=== PATIENT | female | born 1950 | race Caucasian/White ===

== ENCOUNTER 2018-07-08 10:41 | Emergency (ER) | payer OTHER ==
--- OUTSIDE RECORDS SUMMARY | 2018-07-08 10:43 | XMS REPORT | Clinical Summary ---
:1950 Author Organization [facility] Address [address] [place] [address] Care Team Providers Name Role Phone Jerrod Rios MD Primary Care Provider Allergies Active Allergy Reactions Severity Noted Date Comments Penicillins 07/29/2016 Medications Medication Sig Dispensed Refills Start End Date Status Date ALPRAZolam (XANAX) TAKE 1/2 TABLET 0 Active 0.5 MG tablet BY MOUTH 3 TIMES 7 A DAY NEEDED metoprolol Take 100 mg by 1 Active succinate XL mouth once daily. 7 (TOPROL-XL) 100 mg 24 hr tablet nortriptyline Take 50 mg by 0 Active (PAMELOR) 50 MG mouth once daily. 7 capsule omeprazole TAKE ONE CAPSULE 0 Active (PriLOSEC) 40 MG BY MOUTH EVERY 7 capsule DAY 30 MINUTES BEFORE BREAKFAST perphenazine 4 MG Take 12 mg by 0 Active tablet mouth every 7 evening. verapamil extended Take 300 mg by 1 Active release (VERELAN mouth once daily. 6 PM) 300 MG capsule, [address] ER capsule zolpidem (AMBIEN) TAKE 1 TABLET BY 0 Active 10 mg tablet MOUTH EVERY NIGHT 7 NEEDED cholecalciferol, Take 2,000 Units 0 Active vitamin D3, by mouth. (VITAMIN D3) 2,000 unit tablet utmfizcf-oii-SG-Ca Take 1 tablet by 0 Active carb-vit K 400 mouth. mcg-500 mg calcium-20 mcg tablet clonIDINE Take 1 tablet 180 tablet 3 Active (CATAPRES) 0.1 MG (0.1 mg total) by 8 tabletIndications: mouth 2 (two) Essential times a day. hypertension losartan (COZAAR) Take 100 mg by 1 Active 100 MG tablet mouth daily. 8 spironolactone TAKE 1 TABLET BY 90 tablet 3 Active (ALDACTONE) 50 MG MOUTH EVERY DAY 9 tabletIndications: Essential hypertension losartan-hydrochlor Take 1 tablet by 1 04/06/20 Discontinued othiazide (HYZAAR) mouth once daily. 6 18 100-25 mg per Patient is taking tablet half tablet Per [employer] clonIDINE Take 1 tablet 180 tablet 3 12/17/19 Discontinued (CATAPRES) 0.1 MG (0.1 mg total) by 7 18 tabletIndications: mouth 2 (two) Essential times a day. hypertension valsartan (DIOVAN) Take 80 mg by 2 04/06/20 Discontinued 80 MG tablet mouth once daily. 7 18 spironolactone Take 1 tablet (50 90 tablet 3 06/21/19 Discontinued (ALDACTONE) 50 MG mg total) by 8 19 tabletIndications: mouth daily. Essential hypertension Active Problems Problem Noted Date Essential hypertension 07/30/2016 Encounters Date Type Specialty Care Team Description 06/21/2018 Refill Cardiology Goldy Beckwith MD Med Refill 04/06/2018 Office Visit Cardiology Goldy Beckwith MD Essential hypertension (Primary Dx) 12/16/2017 Orders Only Cardiology Gerardo Jay MA Essential hypertension 12/11/2017 Refill Cardiology Goldy Beckwith MD Med Refill after 07/07/2017 Social History Tobacco Use Types Packs/Day Years Used Date Never Smoker Sex Assigned at Date Recorded Not on file Job Start Date Occupation Industry Not on file Not on file Not on file Travel History Travel Start Travel End No recent travel history available. Last Filed Vital Signs Vital Sign Reading Time Taken Blood Pressure 177/87 04/06/2018 10:27 AM OB NURSE Pulse 89 04/06/2018 10:27 AM OB NURSE Temperature - - Respiratory Rate - - Oxygen Saturation - - Inhaled Oxygen Concentration - - Weight 95.3 kg (210 lb) 04/06/2018 10:27 AM OB NURSE Height - - Body Mass Index 36.05 04/06/2018 10:27 AM OB NURSE Plan of Treatment Date Type Specialty Care Team Description 10/05/2018 Office Visit Cardiology Goldy Beckwith MD [address] [address] Health Maintenance Due Date Last Done Comments BREAST CANCER SCREENING 02/20/1998 COLON CANCER SCREENING 02/20/1998 SHINGLES VACCINES (1 of 2) 02/20/1998 PNEUMOCOCCAL POLYSACCHARIDE VACCINE AGE 65 AND OVER 02/20/2013 PNEUMOCOCCAL-13 02/20/2013 INFLUENZA VACCINE 12/23/2017 Results Not on fileafter 07/07/2017 Insurance Payer Benefit Plan / Group Subscriber ID Type Phone Address AETNA MEDICARE AETNA MEDICARE HMO/PPO [facility] xxxxxxxx HMO ([place]) [place] [address] Advance Directives Patient has advance care planning documents on file. For more information, please contact:Melecio Zamarripa[address] [place] [address]
--- OUTSIDE RECORDS SUMMARY | 2018-07-08 10:44 | XMS REPORT ---
:1950 Author Organization [employer] Care Team Providers Name Role Phone Eastman Angelo Provider Role Unavailable Allergies, Adverse Reactions, Alerts Substance Reaction Event Type penicillin Info Not Available Drug Allergy Problems Problem Type Condition Code Onset Dates Condition Status Assessment Strain of muscle(s) and tendon(s) S46.011A Active of the rotator cuff of right shoulder, initial encounter Problem Pain, joint, shoulder, right M25.511 Active Problem Presence of left artificial knee Z96.652 Active joint Problem Strain of muscle(s) and tendon(s) S46.011A Active of the rotator cuff of right shoulder, initial encounter Assessment Pain, joint, shoulder, right M25.511 Active Problem Other chronic pain G89.29 Active Problem Pain in left knee M25.562 Active Medications Medication Code Code Instructions Start End Status Dosage System Date Date Spironolactone [facility] 83338536912 50 MG Oral Active TAKE 1 TABLET BY MOUTH EVERY DAY Zolpidem Tartrate [facility] 75495261960 10 MG Oral Active (Schedule IV Drug) TAKE 1 TABLET BY MOUTH EVERY NIGHT NEEDED Perphenazine [facility] 55052178468 4 MG Oral Active TAKE 3 TABLET BY MOUTH EVERY EVENING Losartan Potassium [facility] 67770320391 100 MG Oral Active TAKE 1 TABLET BY MOUTH EVERY DAY Metoprolol [facility] 84833647430 100 MG Oral Active TAKE 1 Succinate ER TABLET BY MOUTH EVERY DAY Nortriptyline HCl [facility] 71370954365 50 MG Oral Active TAKE 1 CAPSULE BY MOUTH EVERY DAY Clonidine HCl [facility] 76715246732 0.1 MG Oral Active TAKE 1 TABLET BY MOUTH TWICE A DAY Results Name Result Date Reference Range Unit Abnormality Flag X-RAY EXAM SHOULDER 2 VIEWS (01439) Summary Purpose eClinicalWorks Submission
--- OUTSIDE RECORDS SUMMARY | 2018-07-08 10:44 | XMS REPORT ---
:1950 Author Organization [employer] Care Team Providers Name Role Phone Angelo Eastman Provider Role Unavailable Allergies, Adverse Reactions, Alerts Substance Reaction Event Type penicillin Info Not Available Drug Allergy Problems Problem Type Condition Code Onset Dates Condition Status Assessment Pain in left knee M25.562 Active Assessment Other chronic pain G89.29 Active Problem Pain, joint, shoulder, right M25.511 Active Problem Presence of left artificial knee Z96.652 Active joint Problem Strain of muscle(s) and tendon(s) S46.011A Active of the rotator cuff of right shoulder, initial encounter Assessment Presence of left artificial knee Z96.652 Active joint Problem Other chronic pain G89.29 Active Problem Pain in left knee M25.562 Active Medications Medication Code Code Instructions Start End Status Dosage System Date Date Perphenazine [facility] 94578892474 4 MG Oral Active TAKE 3 TABLET BY MOUTH EVERY EVENING Zolpidem Tartrate [facility] 59405450311 10 MG Oral Active (Schedule IV Drug) TAKE 1 TABLET BY MOUTH EVERY NIGHT NEEDED Glucosamine NDC 0 Active not Chondro Complex defined Vitamin D-3 [facility] [address] Active not defined Losartan [facility] 86782247910 100 MG Oral Active TAKE 1 Potassium TABLET BY MOUTH EVERY DAY Clonidine HCl [facility] 86575076766 0.1 MG Oral Active TAKE 1 TABLET BY MOUTH TWICE A DAY Pepcid [facility] [address]-62 Active not defined Multivitamin [facility] 00782-[address]12 Active not defined Aspirin 81 [facility] [address]69-01973 Active not defined Fish Oil [facility] [address]-09 Active not defined Metoprolol [facility] 32894810359 100 MG Oral Active TAKE 1 Succinate ER TABLET BY MOUTH EVERY DAY Spironolactone [facility] 22531172118 50 MG Oral Active TAKE 1 TABLET BY MOUTH EVERY DAY Nortriptyline HCl [facility] 28555730034 50 MG Oral Active TAKE 1 CAPSULE BY MOUTH EVERY DAY Results No Known Results Summary Purpose eClinicalWorks Submission
[2018-07-08 11:25] LABS: Absolute Lymphocytes (CBC) 1.4 K/uL (0.7-4.9); Absolute Monocytes 0.8 K/uL (0.1-1.3); Absolute Neutrophil 5.1 K/uL (1.8-8.0); Basophils % 0.5 % (0-1.3); Eosinophils % 1.5 % (0-4.4); Hematocrit 38.1 % (36.0-45.0); Lymphocytes % 19.1 % (15.3-44.8); MPV 7.6 fL (7.6-11.3); Monocytes % 10.6 % (3.3-12.3); RBC Red Blood Cell Count 4.31 M/uL (3.86-4.86)
[2018-07-08 11:37] LABS: Potassium 4.3 mmol/L (3.5-5.1); Protime INR 1.03
--- NOTE | 2018-07-08 12:13 | ER ---
Nurse's Notes [facility] Name: Krissy Blanco Age: 68 yrs Sex: Female : 1950 Arrival Date: 07/08/2018 Time: 10:42 Bed 3 Private MD: Diagnosis: Epistaxis-Left nare Presentation: 07/08 10:43 Presenting complaint: Patient states: continuous nose bleed that began approximately 20 tw2 minutes ago. Steady stream of blood noted from L nare. Pt denies injury. Transition of care: patient was not received from another setting of care. Onset of symptoms was July 08, 2018. Risk Assessment: Do you want to hurt yourself or someone else? Patient reports no desire to harm self or others. Initial Sepsis Screen: Does the patient have a suspected source of infection? No. Patient's initial sepsis screen is negative. Care prior to arrival: None. 10:43 Method Of Arrival: Ambulatory tw2 10:43 Acuity: BETTY 2 tw2 11:24 Initial Sepsis Screen: Does the patient meet any 2 criteria? No. Patient's initial ph sepsis screen is negative. Does the patient have a suspected source of infection? No. Patient's initial sepsis screen is negative. Historical: - Allergies: 11:23 PENICILLINS; ph - PMHx: 11:23 Hypertension; ph - Immunization history:: Adult Immunizations unknown. - Social history:: Smoking status: Patient/guardian denies using tobacco. - Ebola Screening: : No symptoms or risks identified at this time. Screenin:23 Abuse screen: Denies threats or abuse. Denies injuries from another. Nutritional ph screening: No deficits noted. Tuberculosis screening: No symptoms or risk factors identified. Fall Risk None identified. Assessment: 10:50 General: Appears in no apparent distress. comfortable, Behavior is calm, cooperative, ph appropriate for age, Denies fever, feeling ill. Pain: Denies pain. Neuro: Level of Consciousness is awake, alert, obeys commands, Oriented to person, place, time, situation. Cardiovascular: Capillary refill < 3 seconds in bilateral fingers Patient's skin is warm and dry. Respiratory: Airway is patent Respiratory effort is even, unlabored, Respiratory pattern is regular, symmetrical. GI: Patient currently denies nausea, vomiting. EENT: Nares with bleeding noted on left. Derm: Skin is intact, is healthy with good turgor, Skin is pink, warm \T\ dry. Musculoskeletal: Circulation, motion, and sensation intact. Range of motion: intact in all extremities. 11:00 Reassessment: Patient appears in no apparent distress at this time. Patient and/or ph family updated on plan of care and expected duration. Pain level reassessed. Patient is alert, oriented x 3, equal unlabored respirations, skin warm/dry/pink. Dr Guy at bedside to speak w/ pt, bleeding from nares noted to haver ceased w/ no intervention, pt resting quietly, awaiting lab results, family at bedside. 12:45 Reassessment: Patient appears in no apparent distress at this time. Patient and/or ph family updated on plan of care and expected duration. Pain level reassessed. Patient is alert, oriented x 3, equal unlabored respirations, skin warm/dry/pink. No further bleeding noted, pt d/c home w/ SO. Vital Signs: 10:43 BP 131 / 103; Pulse 118; Resp 20; Pulse Ox 98% on R/A; Pain 0/10; tw2 11:28 BP 118 / 63; Pulse 97; Resp 18; Pulse Ox 99% on R/A; Pain 0/10; ph 12:30 BP 121 / 64; Pulse 81; Resp 18; Temp 97.2; Pulse Ox 99% on R/A; ph 10:43 pt is moving arms while obtaining BP to hold gauze to her nose tw2 ED Course: 10:42 Patient arrived in ED. tw2 10:43 Arm band placed on right wrist. tw2 10:44 Triage completed. tw2 10:52 Kyle Guy MD is Attending Physician. kdr 11:09 Initial lab(s) drawn, by ak, sent to lab. Inserted saline lock: 20 gauge in right dh3 antecubital area, using aseptic technique. Blood collected. 11:24 Patient has correct armband on for positive identification. Bed in low position. Call ph light in reach. Pulse ox on. NIBP on. Warm blanket given. 11:28 Madiha Canseco, SHAYAN is Primary Nurse. ph 12:11 Asuncion Cisneros MD is Referral Physician. kdr 12:48 No provider procedures requiring assistance completed. IV discontinued, intact, sg bleeding controlled, No redness/swelling at site. Pressure dressing applied. Administered Medications: No medications were administered Outcome: 12:12 Discharge ordered by . kdr 12:48 Discharged to home ambulatory, with family. sg 12:48 Condition: good 12:48 Discharge instructions given to patient, Instructed on discharge instructions, follow up and referral plans. safety practices, Demonstrated understanding of instructions, follow-up care. 12:48 Patient left the ED. sg Signatures: Jeremías Braxton RN RN Kyle Barreto MD MD [facility] Madiha Canseco RN RN Michelle Hu RN RN 2 Jennifer Cisneros 3 Corrections: (The following items were deleted from the chart) 10:44 10:43 BP 131 / 103; Pulse 118bpm; Resp 20bpm; Pulse Ox 98% RA; Pain 0/10; tw2 tw2
--- NOTE | 2018-07-08 12:13 | EDPHYS ---
Physician Documentation [facility] Name: Krissy Blanco Age: 68 yrs Sex: Female : 1950 Arrival Date: 07/08/2018 Time: 10:42 Bed 3 Private MD: ED Physician Kyle Guy HPI: 07/08 11:17 This 68 yrs old Female presents to ER via Ambulatory with complaints of Nose kdr Bleed. 11:17 The patient presents with a nose bleed, that is apparently anterior, from the left kdr nare, occurred from an unknown cause, that is intermittent moderate amount bright red, with clots, causative factors include: unknown, Has intermittent bleeding on initial exam in the ED.. Onset: The symptoms/episode began/occurred suddenly, just prior to arrival, When she bent down to seed cone picker something, her nose began to bleed. Modifying factors: The symptoms are alleviated by nothing. the symptoms are aggravated by blowing nose. Associated signs and symptoms: The patient has no apparent associated signs or symptoms, Loss of consciousness: the patient experienced no loss of consciousness. Severity of symptoms: At their worst the symptoms were mild in the emergency department the symptoms have improved moderately. The patient has not experienced similar symptoms in the past. The patient has not recently seen a physician. Historical: - Allergies: 11:23 PENICILLINS; ph - PMHx: 11:23 Hypertension; ph - Immunization history:: Adult Immunizations unknown. - Social history:: Smoking status: Patient/guardian denies using tobacco. - Ebola Screening: : No symptoms or risks identified at this time. ROS: 11:17 Constitutional: Negative for fever, chills, and weight loss, Eyes: Negative for injury, kdr pain, redness, and discharge, Neck: Negative for injury, pain, and swelling. 11:17 ENT: Positive for nasal discharge, nose bleed, sore throat, Negative for drainage from ear(s), ear pain, foreign body sensation, Gum pain hearing loss, pulling at ears, Teeth pain tinnitus, rhinorrhea, sinus congestion, sinus pain, sore throat, dental pain, difficulty swallowing, difficulty handling secretions, hoarseness, acute changes. Exam: 11:17 Constitutional: This is a well developed, well nourished patient who is awake, alert, kdr and in no acute distress. Head/Face: Normocephalic, atraumatic. Eyes: Pupils equal round and reactive to light, extra-ocular motions intact. Lids and lashes normal. Conjunctiva and sclera are non-icteric and not injected. Cornea within normal limits. Periorbital areas with no swelling, redness, or edema. Neck: Trachea midline, no thyromegaly or masses palpated, and no cervical lymphadenopathy. Supple, full range of motion without nuchal rigidity, or vertebral point tenderness. No Meningismus. 11:17 ENT: Nose: External nose: no obvious acute abnormality, Nasal septum: is midline, Nasal mucosa: erythematous, moist, Turbinates: are normal, bleeding, is not appreciated, is seen from the left nare, and is minimal, nasal drainage, that is minimal, and expressed from the left nare, that is brown, a foreign body, is not appreciated, laceration, is not appreciated, cerebral spinal fluid rhinorrhea, is not appreciated. Vital Signs: 10:43 BP 131 / 103; Pulse 118; Resp 20; Pulse Ox 98% on R/A; Pain 0/10; tw2 11:28 BP 118 / 63; Pulse 97; Resp 18; Pulse Ox 99% on R/A; Pain 0/10; ph 12:30 BP 121 / 64; Pulse 81; Resp 18; Temp 97.2; Pulse Ox 99% on R/A; ph 10:43 pt is moving arms while obtaining BP to hold gauze to her nose tw2 MDM: 11:17 Data reviewed: vital signs, nurses notes, lab test result(s). kdr 12:12 Patient medically screened. kdr 07/08 10:53 Order name: CBC with Diff; Complete Time: 12:11 kdr 07/08 10:53 Order name: Chem 7; Complete Time: 12:11 kdr 07/08 10:53 Order name: PT-INR; Complete Time: 12:11 kdr Administered Medications: No medications were administered Disposition: 07/08/18 12:12 Discharged to Home. Impression: Epistaxis - Left nare. - Condition is Stable. - Discharge Instructions: Nosebleed, [id number]. - Medication Reconciliation Form, Thank You Letter form. - Follow up: Private Physician; When: 2 - 3 days; Reason: If symptoms return, Further diagnostic work-up, Recheck today's complaints, Continuance of care, Re-evaluation by your physician. Follow up: Asuncion Cisneros MD; When: 1 - 2 days; Reason: If symptoms return, Further diagnostic work-up, Recheck today's complaints, Continuance of care, Re-evaluation by your physician. - Problem is new. - Symptoms have improved. Signatures: Dispatcher [employer] EDJeremías Quintana RN RN sg Kyle Guy MD MD [facility] Madiha Canseco RN RN ph Corrections: (The following items were deleted from the chart) 12:48 12:12 07/08/2018 12:12 Discharged to Home. Impression: Epistaxis - Left nare. Condition sg is Stable. Forms are Medication Reconciliation Form, Thank You Letter, Antibiotic Education, Prescription Opioid Use. Follow up: Private Physician; When: 2 - 3 days; Reason: If symptoms return, Further diagnostic work-up, Recheck today's complaints, Continuance of care, Re-evaluation by your physician. Follow up: Asuncion Cisneros; When: 1 - 2 days; Reason: If symptoms return, Further diagnostic work-up, Recheck today's complaints, Continuance of care, Re-evaluation by your physician. Problem is new. Symptoms have improved. kdr
[2018-07-08 12:56] VITALS: BP 118/63; O2SAT 99
== END 2018-07-08 12:48 | disposition home or self-care (01) ==
LOC: ER 10:41
DX: R04.0 Epistaxis (principal); I10 Essential (primary) hypertension; Z88.0 Allergy status to penicillin
CPT/HCPCS: 36415; 80048; 85025; 85610; 99283

== ENCOUNTER 2018-07-08 16:58 | Emergency (ER) | payer OTHER ==
--- OUTSIDE RECORDS SUMMARY | 2018-07-08 17:00 | XMS REPORT | Clinical Summary ---
:1950 Author Organization [facility] Address [address] [place] [address] Care Team Providers Name Role Phone Jerrod [...] by mouth. (VITAMIN D3) 2,000 unit tablet swaxixbi-yco-UW-Ca Take 1 tablet by 0 Active carb-vit [...] Patient is taking tablet half tablet Per Professor [employer] clonIDINE Take 1 tablet 180 tablet 3 [...] Taken Blood Pressure 177/87 04/06/2018 10:27 AM STOCK ANALYST Pulse 89 04/06/2018 10:27 AM STOCK ANALYST Temperature - - Respiratory Rate - - Oxygen Saturation - - Inhaled Oxygen Concentration - - Weight 95.3 kg (210 lb) 04/06/2018 10:27 AM STOCK ANALYST Height - - Body Mass Index 36.05 04/06/2018 10:27 AM STOCK ANALYST Plan of Treatment Date Type Specialty Care Team Description 10/05/2018 Office Visit Cardiology Goldy Beckwith MD [address] [address] Health Maintenance Due Date Last Done Comments BREAST CANCER SCREENING 02/20/1998 COLON CANCER SCREENING 02/20/1998 SHINGLES VACCINES (1 of 2) 02/20/1998 PNEUMOCOCCAL POLYSACCHARIDE VACCINE AGE 65 AND OVER 02/20/2013 PNEUMOCOCCAL-13 02/20/2013 INFLUENZA VACCINE 12/23/2017 Results Not on fileafter 07/07/2017 Insurance Payer Benefit Plan / Group Subscriber ID Type Phone Address AETNA MEDICARE AETNA MEDICARE HMO/PPO [facility] xxxxxxxx HMO ([place]) [place] [address] Advance Directives Patient has advance care planning documents on file. For more information, please contact:Melecio Zamarripa[address] [place] [address]
--- OUTSIDE RECORDS SUMMARY | 2018-07-08 17:01 | XMS REPORT ---
[...] End Status Dosage System Date Date Perphenazine [facility] 57704506956 4 MG Oral Active TAKE 3 TABLET BY MOUTH EVERY EVENING Zolpidem Tartrate [facility] 51626100352 10 MG Oral Active (Schedule IV Drug) TAKE 1 TABLET BY MOUTH EVERY NIGHT NEEDED Glucosamine NDC 0 Active not Chondro Complex defined Vitamin D-3 [facility] [address] Active not defined Losartan [facility] 42421650928 100 MG Oral Active TAKE 1 Potassium TABLET BY MOUTH EVERY DAY Clonidine HCl [facility] 99500580503 0.1 MG Oral Active TAKE 1 TABLET BY MOUTH TWICE A DAY Pepcid [facility] [address]-99 Active not defined Multivitamin [facility] 84524-95130 Active not defined Aspirin 81 [facility] 50985-08821 Active not defined Fish Oil [facility] [address]-14 Active not defined Metoprolol [facility] 34564774474 100 MG Oral Active TAKE 1 Succinate ER TABLET BY MOUTH EVERY DAY Spironolactone [facility] 81426208914 50 MG Oral Active TAKE 1 TABLET BY MOUTH EVERY DAY Nortriptyline HCl [facility] 65521269110 50 MG Oral Active TAKE 1 CAPSULE BY MOUTH EVERY DAY Results No Known Results Summary Purpose eClinicalWorks Submission
--- OUTSIDE RECORDS SUMMARY | 2018-07-08 17:01 | XMS REPORT ---
[...] End Status Dosage System Date Date Spironolactone [facility] 35798542035 50 MG Oral Active TAKE 1 TABLET BY MOUTH EVERY DAY Zolpidem Tartrate [facility] 94881118835 10 MG Oral Active (Schedule IV Drug) TAKE 1 TABLET BY MOUTH EVERY NIGHT NEEDED Perphenazine [facility] 07787633011 4 MG Oral Active TAKE 3 TABLET BY MOUTH EVERY EVENING Losartan Potassium [facility] 86994093209 100 MG Oral Active TAKE 1 TABLET BY MOUTH EVERY DAY Metoprolol [facility] 57956782588 100 MG Oral Active TAKE 1 Succinate ER TABLET BY MOUTH EVERY DAY Nortriptyline HCl [facility] 03083351494 50 MG Oral Active TAKE 1 CAPSULE BY MOUTH EVERY DAY Clonidine HCl [facility] 07506475582 0.1 MG Oral Active TAKE 1 TABLET BY MOUTH TWICE A DAY Results Name Result Date Reference Range Unit Abnormality Flag X-RAY EXAM SHOULDER 2 VIEWS ([id number]) Summary Purpose eClinicalWorks Submission
[2018-07-08] MEDS ORDERED: OXYMETAZOLINE HCL 0.05% 15ML NAS ONE (17:19)
--- NOTE | 2018-07-08 18:02 | ER ---
Nurse's Notes [facility] Name: Krissy Blanco Age: 68 yrs Sex: Female : 1950 Arrival Date: 07/08/2018 Time: 16:59 Bed 25 Private MD: Unknown, Unknown Diagnosis: Epistaxis-Bilateral Presentation: 07/08 17:00 Presenting complaint: Patient states: i ate a cheeseburger and took the nose clamp off tw2 for a bit and my nose started bleeding all over again like this morning. Transition of care: patient was not received from another setting of care. Onset of symptoms was July 08, 2018. Risk Assessment: Do you want to hurt yourself or someone else?. Initial Sepsis Screen: Does the patient meet any 2 criteria? No. Patient's initial sepsis screen is negative. Does the patient have a suspected source of infection? No. Patient's initial sepsis screen is negative. Care prior to arrival: None. 17:00 Method Of Arrival: Wheelchair tw2 17:00 Acuity: BETTY 3 tw2 Triage Assessment: 17:02 General: Appears in no apparent distress. Behavior is appropriate for age. Pain: Denies tw2 pain. Historical: - Allergies: 17:02 PENICILLINS; tw2 - PMHx: 17:02 Hypertension; tw2 - Immunization history:: Adult Immunizations. - Social history:: Smoking status: . - Ebola Screening: : Patient negative for fever greater than or equal to 101.5 degrees Fahrenheit, and additional compatible Ebola Virus Disease symptoms. Screenin:00 Abuse screen: Denies threats or abuse. Denies injuries from another. Nutritional ca1 screening: No deficits noted. Tuberculosis screening: No symptoms or risk factors identified. Fall Risk None identified. Assessment: 17:00 General: Appears in no apparent distress. uncomfortable, Behavior is calm, cooperative, ca1 appropriate for age. Pain: Denies pain. Neuro: Level of Consciousness is awake, alert, obeys commands, Oriented to person, place, time, situation. Cardiovascular: Heart tones S1 S2 present Capillary refill < 3 seconds Patient's skin is warm and dry. Respiratory: Airway is patent Respiratory effort is even, unlabored, Respiratory pattern is regular, symmetrical, Breath sounds are clear bilaterally. GI: Abdomen is round non-distended, Bowel sounds present X 4 quads. Abd is soft and non tender X 4 quads. : No signs and/or symptoms were reported regarding the genitourinary system. EENT: Nares with nose clamps. . Reports nasal discharge that is bloody. Derm: Skin is intact, is healthy with good turgor, Skin is pink, warm \T\ dry. Musculoskeletal: Circulation, motion, and sensation intact. 17:10 Reassessment: Dr. Guy at bedside performing nasal packing on pt. Noted blood clots ca1 from nose when clamp is removed. Pt able to blow clots from nose. Pt tolerated nasal packing procedure well. 18:00 Reassessment: No changes from previously documented assessment. Patient and/or family ca1 updated on plan of care and expected duration. Pain level reassessed. Patient is alert, oriented x 3, equal unlabored respirations, skin warm/dry/pink. No bleeding noted. Pt reports feeling better. 18:40 Reassessment: Patient appears in no apparent distress at this time. Pt instructed on ca1 appointment with ENT on Thursday at 0800. Vital Signs: 17:00 BP 147 / 115; Pulse 89; Resp 18; Temp 98(O); Pulse Ox 100% on R/A; Pain 0/10; ca1 18:00 BP 100 / 83; Pulse 88; Resp 18; Pulse Ox 100% on R/A; ca1 ED Course: 16:59 Patient arrived in ED. sb2 16:59 Unknown, Unknown is Private Physician. sb2 17:01 Triage completed. tw2 17:02 Kyle Guy MD is Attending Physician. kdr 17:02 Arm band placed on. tw2 17:03 Denise Mg, SHAYAN is Primary Nurse. ca1 17:05 Patient has correct armband on for positive identification. Placed in gown. Bed in low ca1 position. Call light in reach. Side rails up X 1. 17:05 Pulse ox on. NIBP on. ca1 18:00 Asuncion Cisneros MD is Referral Physician. kdr 18:40 No provider procedures requiring assistance completed. Patient did not have IV access ca1 during this emergency room visit. Administered Medications: No medications were administered Outcome: 18:01 Discharge ordered by . kdr 18:40 Discharged to home ambulatory. ca1 18:40 Condition: stable 18:40 Discharge instructions given to patient, Instructed on discharge instructions, follow up and referral plans. Demonstrated understanding of instructions, follow-up care. 18:50 Patient left the ED. ca1 Signatures: Kyle Guy MD MD kdr Mcihelle Hu RN RN tw2 Mary Alice Ivy 2 Denise Mg RN RN ca1 Corrections: (The following items were deleted from the chart) 17:36 17:10 Reassessment: Dr. Guy at bedside performing nasal packing on pt. ca1 ca1
--- NOTE | 2018-07-08 18:02 | EDPHYS ---
Physician Documentation [facility] Name: Krissy Blanco Age: 68 yrs Sex: Female : 1950 Arrival Date: 07/08/2018 Time: 16:59 Bed 25 Private MD: Unknown, Unknown ED Physician Kyle Guy HPI: 07/08 17:53 This 68 yrs old Female presents to ER via Wheelchair with complaints of Nose kdr Bleed. 17:53 The patient presents with a nose bleed, that is apparently anterior, from both nares, kdr occurred from an unknown cause, Bent over and then started to have nose bleed - mostly from the left nare nasal drainage, that is bloody. Onset: The symptoms/episode began/occurred The patient had her initial bleed this morning and came to the ED. The bleeding was stopped and she was discharged in stable condition with a nasal clamp. She states that on the way home, she stopped to get a hamburger and that when she started to chew, her nose began to bleed again. She put the clamp on and attempted to stope the bleeding however, it continued and she returned.. Modifying factors: The symptoms are alleviated by nothing. the symptoms are aggravated by blowing nose. Associated signs and symptoms: The patient has no apparent associated signs or symptoms. Severity of symptoms: At their worst the symptoms were mild in the emergency department the symptoms are unchanged. The patient has not experienced similar symptoms in the past. The patient has been recently seen at the [facility] Emergency Department, today. Historical: - Allergies: 17:02 PENICILLINS; tw2 - PMHx: 17:02 Hypertension; tw2 - Immunization history:: Adult Immunizations. - Social history:: Smoking status: . - Ebola Screening: : Patient negative for fever greater than or equal to 101.5 degrees Fahrenheit, and additional compatible Ebola Virus Disease symptoms. ROS: 17:53 Constitutional: Negative for fever, chills, and weight loss, Eyes: Negative for injury, kdr pain, redness, and discharge, Neck: Negative for injury, pain, and swelling, Cardiovascular: Negative for chest pain, palpitations, and edema. 17:53 ENT: Positive for nose bleed. Exam: 17:53 Constitutional: This is a well developed, well nourished patient who is awake, alert, kdr and in no acute distress. Head/Face: Normocephalic, atraumatic. Eyes: Pupils equal round and reactive to light, extra-ocular motions intact. Lids and lashes normal. Conjunctiva and sclera are non-icteric and not injected. Cornea within normal limits. Periorbital areas with no swelling, redness, or edema. Neck: Trachea midline, no thyromegaly or masses palpated, and no cervical lymphadenopathy. Supple, full range of motion without nuchal rigidity, or vertebral point tenderness. No Meningismus. 17:53 ENT: Nose: External nose: no obvious acute abnormality, Nasal septum: is midline, no septal hematoma appreciated, Nasal mucosa: edematous, moist, No apparent blood, Turbinates: are swollen bilaterally, bleeding, is noted from both nares, and is minimal, no septal hematoma is appreciated, that is small. Vital Signs: 17:00 BP 147 / 115; Pulse 89; Resp 18; Temp 98(O); Pulse Ox 100% on R/A; Pain 0/10; ca1 18:00 BP 100 / 83; Pulse 88; Resp 18; Pulse Ox 100% on R/A; ca1 Procedures: 17:53 Epistaxis treatment: A moderate amount of bleeding noted from both nares. Treated using kdr rhino rocket, Bleeding stopped. Inserted in both nares. MDM: 17:53 Data reviewed: vital signs, nurses notes. Counseling: I had a detailed discussion with kdr the patient and/or guardian regarding: the historical points, exam findings, and any diagnostic results supporting the discharge/admit diagnosis, the need for outpatient follow up. Physician consultation: Asuncion Cisneros MD regarding patient's condition, outpatient follow-up, Thursday at 08:00. 18:01 Patient medically screened. kdr 18:07 ED course: The patient tolerated the procedure well. kdr Administered Medications: No medications were administered Disposition: 07/08/18 18:01 Discharged to Home. Impression: Epistaxis - Bilateral. - Condition is Stable. - Discharge Instructions: Nosebleed, [id number]. - Medication Reconciliation Form, Thank You Letter, Antibiotic Education, Prescription Opioid Use form. - Follow up: Asuncion Cisneros MD; When: Thursday at 08:00 in her office; Reason: If symptoms return, Further diagnostic work-up, Recheck today's complaints, Continuance of care, Re-evaluation by your physician. - Problem is new. - Symptoms have improved. Signatures: Kyle Guy MD MD kdr Michelle Hu RN RN tw2 Denise Mg RN RN ca1 Corrections: (The following items were deleted from the chart) 18:01 18:01 07/08/2018 18:01 Discharged to Home. Impression: Epistaxis - Bilateral. Condition kdr is Fair. Forms are Medication Reconciliation Form, Thank You Letter, Antibiotic Education, Prescription Opioid Use. Follow up: Asuncion Cisneros; When: Thursday at 08:00 in her office; Reason: If symptoms return, Further diagnostic work-up, Recheck today's complaints, Continuance of care, Re-evaluation by your physician. kdr 18:50 18:01 07/08/2018 18:01 Discharged to Home. Impression: Epistaxis - Bilateral. Condition ca1 is Stable. Forms are Medication Reconciliation Form, Thank You Letter, Antibiotic Education, Prescription Opioid Use. Follow up: Asuncion Cisneros; When: Thursday at 08:00 in her office; Reason: If symptoms return, Further diagnostic work-up, Recheck today's complaints, Continuance of care, Re-evaluation by your physician. Problem is new. Symptoms have improved. kdr
[2018-07-08 21:13] VITALS: TEMP 98; O2SAT 100
[2018-07-08 21:15] VITALS: BP 100/83
== END 2018-07-08 18:50 | disposition home or self-care (01) ==
LOC: ER 16:58
PROC: 2Y41X5Z Packing of Nasal Region using Packing Material (ICD-10-PCS; principal; 2018-07-08)
DX: R04.0 Epistaxis (principal); I10 Essential (primary) hypertension; Z88.0 Allergy status to penicillin
CPT/HCPCS: 30901; 99283

== ENCOUNTER 2019-07-20 12:14 | Emergency (ER) | payer OTHER ==
--- OUTSIDE RECORDS SUMMARY | 2019-07-20 12:16 | XMS REPORT ---
[...] End Status Dosage System Date Date Spironolactone [facility] 11441916578 50 MG Oral Active TAKE 1 TABLET BY MOUTH EVERY DAY Zolpidem Tartrate [facility] 81424837349 10 MG Oral Active (Schedule IV Drug) TAKE 1 TABLET BY MOUTH EVERY NIGHT NEEDED Perphenazine [facility] 99507121063 4 MG Oral Active TAKE 3 TABLET BY MOUTH EVERY EVENING Losartan Potassium [facility] 52998139539 100 MG Oral Active TAKE 1 TABLET BY MOUTH EVERY DAY Metoprolol [facility] 66054508730 100 MG Oral Active TAKE 1 Succinate ER TABLET BY MOUTH EVERY DAY Nortriptyline HCl [facility] 40039464485 50 MG Oral Active TAKE 1 CAPSULE BY MOUTH EVERY DAY Clonidine HCl [facility] 49254742289 0.1 MG Oral Active TAKE 1 TABLET BY MOUTH TWICE A DAY Results Name Result Date Reference Range Unit Abnormality Flag X-RAY EXAM SHOULDER 2 VIEWS (52088) Summary Purpose eClinicalWorks Submission
--- OUTSIDE RECORDS SUMMARY | 2019-07-20 12:16 | XMS REPORT ---
:1950 [facility] Address [address] [place] [address] Care Team Providers Name Role Phone Unavailable Unavailable Unavailable Payers Payer Name Policy Type Policy Number Effective Date Expiration Date Problems This patient has no known problems. Allergies, Adverse Reactions, Alerts Allergy Name Allergy Status Severity Reaction(s) Onset Inactive Treating Comments Type Date Date Clinician Penicillins DA Active MO 2019-05 00:00:0 0 Penicillins DA Active MO 2012-12 00:00:0 0 Medications This patient has no known medications. Results Test Description Test Time Test Comments Text Results Atomic Results Result Comments GLUBED 2019-07-06 10:54:00 Test Item Value Reference Range Comments GLUBED (test code=GLUBED) 103 mg/dL 60-125 BASIC METABOLIC [id number] 06:44:00 Test Item Value Reference Range Comments SODIUM (test code=NA) 138 mmol/L 136-145 POTASSIUM (test code=K) 4.8 mmol/L 3.5-5.1 CHLORIDE (test code=CL) 103.0 mmol/L 98-107 CARBON DIOXIDE (test 24.6 mmol/L 21-32 code=CO2) GLUCOSE (test code=GLU) 188 mg/dL 70-110 BLOOD UREA NITROGEN (test 31 mg/dL 7-18 code=BUN) GLOMERULAR FILTRATION RATE 40.7 >60 Unit of measure: (test code=GFR) mL/min/1.73 [id number] Range:Healthy Adults >90 mL/min/1.73 m2 For Chronic Kidney Disease: Stage II Mild Decrease in GFR 60-90 Stage III Moderate Decrease in GFR 30-59 Stage IV Severe Decrease in GFR 15-29 Stage V Kidney Failure <15 CREATININE (test code=CREAT) 1.29 mg/dL 0.55-1.30 CALCIUM (test code=CA) 7.9 mg/dL 8.2-10.1 HGB [id number] 05:56:00 Test Item Value Reference Range Comments HEMOGLOBIN (test code=HGB) 10.6 g/dL 12-16 HEMATOCRIT (test code=HCT) 31.8 % 37-47 [id number] 05:12:00 Test Item Value Reference Range Comments GLUBED (test code=GLUBED) 140 mg/dL 60-125 [id number] 00:24:00 Test Item Value Reference Range Comments GLUBED (test code=GLUBED) 204 mg/dL 60-125 [id number] 16:56:00 Test Item Value Reference Range Comments GLUBED (test code=GLUBED) 224 mg/dL 60-125 - XR KNEE 1 OR 2 V [id number] 16:15:00 Patient Name: DEANNE JERRY Unit No: [id number] EXAMS: CPT CODE: [id number] XR KNEE 1 OR 2 [place] [id number] IMAGES PROVIDED: 2 FINDINGS: Postoperative changes from righttotal knee arthoplasty demonstrated without evidence of immediate complication. No acute fracture is visualized. IMPRESSION : Postoperative exam as above. at 1615 * * Reported and signed by: Parmjit Blue M.D. CC: Westley Sood MD Technologist: JOSE FARRELL (RT.R) Transcribed D/ (1615) [facility] DEANNE [facility] [address] [facility] PHYS: Westley England MD : 1950 AGE: 69 SEX: F [place], [place] [address] LOC: Y.308 A PHONE #: [phone] EXAM DATE: 07/05/2019 STATUS: REG [facility] FAX #: [phone] RAD #: D/C DT PAGE 1 Signed Report Patient Name: DEANNE JERRY Unit No: [id number] EXAMS: CPT CODE: [id number] XR KNEE 1 OR 2 V RT [id number] <Continued> Orig Print D/T: S: 07/05/2019 (1618) [facility] NAME: DEANNE JERRY [address] [facility] PHYS: Westley England MD : 1950 AGE: 69 SEX: F [place], [place] [address] LOC: Y.308 A PHONE #: [phone] EXAM DATE: 07/05/2019 STATUS: REG [facility] FAX #: [phone] RAD #: D/C DT PAGE 2 Signed ReportCOMPREHENSIVE METABOLIC [id number] 14:58:00 Test Item Value Reference Range Comments SODIUM (test code=NA) 140 mmol/L 136-145 POTASSIUM (test code=K) 4.7 mmol/L 3.5-5.1 CHLORIDE (test code=CL) 102.0 mmol/L 98-107 CARBON DIOXIDE (test code=CO2) 26.6 mmol/L 21-32 GLUCOSE (test code=GLU) 89 mg/dL 70-110 BLOOD UREA NITROGEN (test 21 mg/dL 7-18 code=BUN) GLOMERULAR FILTRATION RATE 61.7 >60 Unit of measure: (test code=GFR) mL/min/1.73 [id number] Range:Healthy Adults >90 mL/min/1.73 m2 For Chronic Kidney Disease: Stage II Mild Decrease in GFR 60-90 Stage III Moderate Decrease in GFR 30-59 Stage IV Severe Decrease in GFR 15-29 Stage V Kidney Failure <15 CREATININE (test code=CREAT) 0.90 mg/dL 0.55-1.30 TOTAL PROTEIN (test code=PROT) 7.0 g/dL 6.4-8.2 ALBUMIN (test code=ALB) 3.6 g/dL 3.4-5.0 GLOBULIN (test code=GLOB) 3.4 g/dL 2.2-4.2 ALBUMIN/GLOBULIN RATIO (test 1.1 0.7-2.0 code=A/G) CALCIUM (test code=CA) 9.5 mg/dL 8.2-10.1 BILIRUBIN TOTAL (test 0.29 mg/dL 0.2-1.00 code=BILT) SGOT/AST (test code=AST) 19.0 U/L 15-37 SGPT/ALT (test code=ALT) 31.0 U/L 12-78 Please note new normal range. ALKALINE PHOSPHATASE TOTAL 80 U/L 46-116 (test code=ALKP) CBC W/AUTO [id number] 14:27:00 Test Item Value Reference Range Comments WHITE BLOOD CELL (test code=WBC) 7.6 K/mm3 5.8-11.0 RED BLOOD CELL (test code=RBC) 4.36 M/mm3 4.2-5.4 HEMOGLOBIN (test code=HGB) 12.7 g/dL 12-16 HEMATOCRIT (test code=HCT) 38.2 % 37-47 MEAN CELL VOLUME (test code=MCV) 88 fL 80-98 MEAN CELL HGB (test code=MCH) 29.1 pg 27-34 MEAN CELL HGB CONCENTRATION (test code=MCHC) 33.2 g/dL 30.8-34.1 RED CELL DISTRIBUTION WIDTH (test code=RDW) 13.1 % 11-16 PLT (test code=PLT) 396 K/mm3 130-400 MEAN PLATELET VOLUME (test code=MPV) 9.5 fL 8.9-12.1 NEUTROPHIL % (test code=NT%) 61.2 % 45-70 LYMPHOCYTE % (test code=LY%) 24.4 % 20-40 MONOCYTE % (test code=MO%) 11.9 % 3-10 EOSINOPHIL % (test code=EO%) 1.5 % 1-5 BASOPHIL % (test code=BA%) 0.5 % 0.0-1.1 NEUTROPHIL # (test code=NT#) 4.64 K/mm3 2.00-7.50 LYMPHOCYTE # (test code=LY#) 1.85 K/mm3 1.50-4.00 MONOCYTE # (test code=MO#) 0.90 K/mm3 0.2-0.8 EOSINOPHIL # (test code=EO#) 0.11 K/mm3 0.04-0.4 BASOPHIL # (test code=BA#) 0.04 K/mm3 0.02-0.10 MANUAL DIFF REQUIRED (test code=MDIFF) NO MANUAL DIFF NUCLEATED RED BLOOD CELL (test code=NRBC) 0 % 0-0
--- OUTSIDE RECORDS SUMMARY | 2019-07-20 12:16 | XMS REPORT ---
[...] End Status Dosage System Date Date Perphenazine [facility] 65810337098 4 MG Oral Active TAKE 3 TABLET BY MOUTH EVERY EVENING Zolpidem Tartrate [facility] 31563731350 10 MG Oral Active (Schedule IV Drug) TAKE 1 TABLET BY MOUTH EVERY NIGHT NEEDED Glucosamine NDC 0 Active not Chondro Complex defined Vitamin D-3 [facility] [address]28 Active not defined Losartan [facility] 76374042189 100 MG Oral Active TAKE 1 Potassium TABLET BY MOUTH EVERY DAY Clonidine HCl [facility] 35561059601 0.1 MG Oral Active TAKE 1 TABLET BY MOUTH TWICE A DAY Pepcid [facility] [address]-93 Active not defined Multivitamin [facility] 32538-84448 Active not defined Aspirin 81 [facility] [address]04 Active not defined Fish Oil [facility] [address]-55 Active not defined Metoprolol [facility] 95277617414 100 MG Oral Active TAKE 1 Succinate ER TABLET BY MOUTH EVERY DAY Spironolactone [facility] 26671705907 50 MG Oral Active TAKE 1 TABLET BY MOUTH EVERY DAY Nortriptyline HCl [facility] 91249597588 50 MG Oral Active TAKE 1 CAPSULE BY MOUTH EVERY DAY Results No Known Results Summary Purpose eClinicalWorks Submission
--- NOTE | 2019-07-20 14:19 | ER ---
Nurse's Notes [facility] Name: Krissy Blanco Age: 69 yrs Sex: Female : 1950 Arrival Date: 07/20/2019 Time: 12:16 Bed 24 Private MD: Diagnosis: Diaphoresis, pallor - chronic Presentation: 07/20 12:55 Presenting complaint: Patient states: was at physical therapy this morning and felt iw cold/clammy throughout therapy, was pale, is diabetic, BS=96, states she feels better but not completely resolved. Transition of care: patient was not received from another setting of care. Onset of symptoms was July 20, 2019. Risk Assessment: Do you want to hurt yourself or someone else? Patient reports no desire to harm self or others. Initial Sepsis Screen: Does the patient meet any 2 criteria? No. Patient's initial sepsis screen is negative. Does the patient have a suspected source of infection? No. Patient's initial sepsis screen is negative. Care prior to arrival: None. 12:55 Method Of Arrival: Wheelchair iw 12:55 Acuity: BETTY 3 iw Historical: - Allergies: 13:02 PENICILLINS; iw 13:04 PENICILLINS; vc - Home Meds: 13:02 metoprolol succinate 100 mg oral Tb24 1 tab once daily [Active]; zolpidem 10 mg Oral iw tab 1 tab once daily [Active]; nortriptyline 50 mg Oral cap once daily [Active]; perphenazine 4 mg oral tab 1 tab 3 times per day [Active]; clonidine HCl 0.1 mg Oral tab 1 tab 2 times per day [Active]; spironolactone 50 mg Oral tab 1 tab once daily [Active]; losartan 100 mg oral tab 1 tab once daily [Active]; metformin 500 mg Oral tab 1 tab 2 times per day [Active]; glucosamine-chondroitin oral oral twice a day [Active]; Fish Oil oral oral daily [Active]; - PMHx: 13:02 Hypertension; Diabetes - NIDDM; iw 13:04 Diabetes - NIDDM; Hypertension; vc - PSHx: 13:02 Hysterectomy; Knee surgery; Tonsillectomy; iw - Immunization history:: Adult Immunizations up to date, Adult Immunizations up to date, Flu vaccine is up to date. - Coronavirus screen:: The patient has NOT traveled to [place] in the past 14 days. Proceed with normal triage process as indicated. The patient has NOT traveled to [place] in the past 14 days. Proceed with normal triage process as indicated. - Social history:: Smoking status: Patient denies any tobacco usage or history of. Smoking status: Patient denies any tobacco usage or history of. - Ebola Screening: : Patient negative for fever greater than or equal to 101.5 degrees Fahrenheit, and additional compatible Ebola Virus Disease symptoms Patient denies exposure to infectious person Patient denies travel to an Ebola-affected area in the 21 days before illness onset No symptoms or risks identified at this time No symptoms or risks identified at this time. Screenin:01 Abuse screen: Denies threats or abuse. Nutritional screening: No deficits noted. vc Tuberculosis screening: No symptoms or risk factors identified. Fall Risk None identified. Assessment: 13:00 General: Appears in no apparent distress. Behavior is calm, cooperative, appropriate vc for age. Pain: Denies pain. Neuro: Level of Consciousness is awake, alert, obeys commands, Oriented to person, place, time, situation. Cardiovascular: Denies chest pain, shortness of breath. Respiratory: Respiratory effort is even, unlabored, Respiratory pattern is regular, symmetrical. GI: No signs and/or symptoms were reported involving the gastrointestinal system. : No signs and/or symptoms were reported regarding the genitourinary system. EENT: No deficits noted. Derm: Skin is clammy, Skin temperature is warm. Musculoskeletal: Circulation, motion, and sensation intact. Range of motion: intact in all extremities. 13:20 Reassessment: Patient and/or family updated on plan of care and expected duration. Pain vc level reassessed. Patient is alert, oriented x 3, equal unlabored respirations, skin warm/dry/pink. Patient denies pain at this time. Patient states symptoms have improved. Vital Signs: 12:48 BP 146 / 103; Pulse 91; Resp 16 S; Temp 97.8; Pulse Ox 98% ; Weight 90.72 kg; Height 5 vc ft. 2 in. (157.48 cm); Pain 0/10; 13:06 BP 129 / 61; Pulse 90; Pulse Ox 100% on R/A; vc 12:48 Body Mass Index 36.58 (90.72 kg, 157.48 cm) vc ED Course: 12:16 Patient arrived in ED. as 12:21 Kyle Guy MD is Attending Physician. kdr 12:55 Aixa Mir, RN is Primary Nurse. vc 12:58 Triage completed. iw 13:01 Arm band placed on. vc 13:02 No provider procedures requiring assistance completed. Patient did not have IV access vc during this emergency room visit. 13:05 Patient has correct armband on for positive identification. vc Administered Medications: No medications were administered Outcome: 13:06 Discharge ordered by MD. kdr 13:25 Discharged to home ambulatory, with significant other. vc 13:25 Condition: good 13:25 Discharge instructions given to patient, significant other, Instructed on discharge instructions, follow up and referral plans. Demonstrated understanding of instructions, follow-up care. 13:29 Patient left the ED. vc Signatures: Kyle Guy MD MD kdr Lory Low as Lexy Burdick RN RN iw Aixa Mir RN RN vc Corrections: (The following items were deleted from the chart) 13:07 13:02 Pulse 91bpm; Resp 16bpm; Spontaneous; Pulse Ox 98%; Temp 97.8F; 90.72 kg; Height iw 5 ft. 2 in.; BMI: 36.5; Pain 0/10; iw 13:08 13:02 Pulse 91bpm; Resp 16bpm; Spontaneous; Pulse Ox 98%; Temp 97.8F; 90.72 kg; Height vc 5 ft. 2 in.; BMI: 36.5; Pain 0/10; iw
--- NOTE | 2019-07-20 14:19 | EDPHYS ---
Physician Documentation [facility] Name: Krissy Blanco Age: 69 yrs Sex: Female : 1950 Arrival Date: 07/20/2019 Time: 12:16 Bed 24 Private MD: ED Physician Kyle Guy HPI: 07/20 13:09 This 69 yrs old Female presents to ER via Wheelchair with complaints of kdr Decreased Appetite. 13:09 The patient was going to therapy today when she was noted by the staff that she was kdr diaphoretic and pale. The patient states that this is a frequent occurrence for years and there was nothing new or unusual about this presentation according to the patient and her this a recurrent problem that has been ongoing for years and there is nothing new about it now. The patient wants to leave and get a hamburger.. Onset: The symptoms/episode began/occurred suddenly, just prior to arrival. Severity of symptoms: At their worst the symptoms were mild in the emergency department the symptoms have resolved. The patient has experienced similar episodes in the past, chronically. The patient has been recently seen by a physician: The patient had a right knee replacement several weeks ago but has not had any known or suspected complications or concerns. Historical: - Allergies: 13:02 PENICILLINS; iw 13:04 PENICILLINS; vc - Home Meds: 13:02 metoprolol succinate 100 mg oral Tb24 1 tab once daily [Active]; zolpidem 10 mg Oral iw tab 1 tab once daily [Active]; nortriptyline 50 mg Oral cap once daily [Active]; perphenazine 4 mg oral tab 1 tab 3 times per day [Active]; clonidine HCl 0.1 mg Oral tab 1 tab 2 times per day [Active]; spironolactone 50 mg Oral tab 1 tab once daily [Active]; losartan 100 mg oral tab 1 tab once daily [Active]; metformin 500 mg Oral tab 1 tab 2 times per day [Active]; glucosamine-chondroitin oral oral twice a day [Active]; Fish Oil oral oral daily [Active]; - PMHx: 13:02 Hypertension; Diabetes - NIDDM; iw 13:04 Diabetes - NIDDM; Hypertension; vc - PSHx: 13:02 Hysterectomy; Knee surgery; Tonsillectomy; iw - Immunization history:: Adult Immunizations up to date, Adult Immunizations up to date, Flu vaccine is up to date. - Coronavirus screen:: The patient has NOT traveled to [place] in the past 14 days. Proceed with normal triage process as indicated. The patient has NOT traveled to [place] in the past 14 days. Proceed with normal triage process as indicated. - Social history:: Smoking status: Patient denies any tobacco usage or history of. Smoking status: Patient denies any tobacco usage or history of. - Ebola Screening: : Patient negative for fever greater than or equal to 101.5 degrees Fahrenheit, and additional compatible Ebola Virus Disease symptoms Patient denies exposure to infectious person Patient denies travel to an Ebola-affected area in the 21 days before illness onset No symptoms or risks identified at this time No symptoms or risks identified at this time. ROS: 13:09 Constitutional: Negative for fever, chills, and weight loss, Eyes: Negative for injury, kdr pain, redness, and discharge, Neck: Negative for injury, pain, and swelling, Cardiovascular: Negative for chest pain, palpitations, and edema, Respiratory: Negative for shortness of breath, cough, wheezing, and pleuritic chest pain, Abdomen/GI: Negative for abdominal pain, nausea, vomiting, diarrhea, and constipation, Back: Negative for injury and pain, : Negative for injury, bleeding, discharge, and swelling, MS/Extremity: Negative for injury and deformity, Skin: Negative for injury, rash, and discoloration, Neuro: Negative for headache, weakness, numbness, tingling, and seizure activity. Psych: Negative for depression, anxiety, suicide ideation, homicidal ideation, and hallucinations, Allergy/Immunology: Negative for hives, rash, and allergies, Endocrine: Negative for neck swelling, polydipsia, polyuria, polyphagia, and marked weight changes, Hematologic/Lymphatic: Negative for swollen nodes, abnormal bleeding, and unusual bruising. Exam: 13:09 Constitutional: This is a well developed, well nourished patient who is awake, alert, kdr and in no acute distress. Head/Face: Normocephalic, atraumatic. Eyes: Pupils equal round and reactive to light, extra-ocular motions intact. Lids and lashes normal. Conjunctiva and sclera are non-icteric and not injected. Cornea within normal limits. Periorbital areas with no swelling, redness, or edema. Neck: Trachea midline, no thyromegaly or masses palpated, and no cervical lymphadenopathy. Supple, full range of motion without nuchal rigidity, or vertebral point tenderness. No Meningismus. Chest/axilla: Normal chest wall appearance and motion. Nontender with no deformity. No lesions are appreciated. Cardiovascular: Regular rate and rhythm with a normal S1 and S2. No gallops, murmurs, or rubs. Normal PMI, no JVD. No pulse deficits. Respiratory: Lungs have equal breath sounds bilaterally, clear to auscultation and percussion. No rales, rhonchi or wheezes noted. No increased work of breathing, no retractions or nasal flaring. Abdomen/GI: Soft, non-tender, with normal bowel sounds. No distension or tympany. No guarding or rebound. No evidence of tenderness throughout. Back: No spinal tenderness. No costovertebral tenderness. Full range of motion. Skin: Warm, dry with normal turgor. Normal color with no rashes, no lesions, and no evidence of cellulitis. MS/ Extremity: Pulses equal, no cyanosis. Neurovascular intact. Full, normal range of motion. Neuro: Awake and alert, GCS 15, oriented to person, place, time, and situation. Cranial nerves II-XII grossly intact. Motor strength 5/5 in all extremities. Sensory grossly intact. Cerebellar exam normal. Normal gait. Psych: Awake, alert, with orientation to person, place and time. Behavior, mood, and affect are within normal limits. Vital Signs: 12:48 BP 146 / 103; Pulse 91; Resp 16 S; Temp 97.8; Pulse Ox 98% ; Weight 90.72 kg; Height 5 vc ft. 2 in. (157.48 cm); Pain 0/10; 13:06 BP 129 / 61; Pulse 90; Pulse Ox 100% on R/A; vc 12:48 Body Mass Index 36.58 (90.72 kg, 157.48 cm) vc MDM: 13:06 Patient medically screened. kdr 13:19 Data reviewed: vital signs, nurses notes, lab test result(s), radiologic studies. kdr Counseling: I had a detailed discussion with the patient and/or guardian regarding: the historical points, exam findings, and any diagnostic results supporting the discharge/admit diagnosis, the need for outpatient follow up. Administered Medications: No medications were administered Disposition: 13:08 Diaphoresis, Pallor. kdr Disposition: 07/20/19 13:06 Discharged to Home. Impression: Diaphoresis, pallor - chronic. - Condition is Stable. - Discharge Instructions: Weakness, [id number]. - Medication Reconciliation Form, Thank You Letter form. - Follow up: Private Physician; When: 2 - 3 days; Reason: If symptoms return, Further diagnostic work-up, Recheck today's complaints, Continuance of care, Re-evaluation by your physician. - Problem is new. - Symptoms are resolved. Signatures: Kyle Guy MD MD kdr Lexy Burdick RN RN iw Aixa Mir RN RN vc Corrections: (The following items were deleted from the chart) 13:29 13:06 07/20/2019 13:06 Discharged to Home. Impression: Diaphoresis, pallor - chronic. vc Condition is Stable. Forms are Medication Reconciliation Form, Thank You Letter, Antibiotic Education, Prescription Opioid Use. Follow up: Private Physician; When: 2 - 3 days; Reason: If symptoms return, Further diagnostic work-up, Recheck today's complaints, Continuance of care, Re-evaluation by your physician. Problem is new. Symptoms are resolved. kdr
[2019-07-20 14:35] VITALS: TEMP 97.8
[2019-07-20 14:37] VITALS: BP 129/61; O2SAT 100
== END 2019-07-20 13:29 | disposition home or self-care (01) ==
LOC: ER 12:14
DX: R23.1 Pallor (principal); I10 Essential (primary) hypertension; E11.9 Type 2 diabetes mellitus without complications; Z88.0 Allergy status to penicillin
CPT/HCPCS: 82947; 99281

== ENCOUNTER → 2022-05-02 | Day surgery (SDC) | payer OTHER ==
--- NOTE | 2022-05-02 12:39 | RAD REPORT ---
EXAM DESCRIPTION: US - Guided FNA Non Breast - 05/02/2022 11:38 am CLINICAL HISTORY: E04.1 COMPARISON: No comparisons FINDINGS: Preoperative diagnosis: Left thyroid nodule. Post operative diagnosis: Same. Conscious Sedation: None Fluoroscopy time: None Contrast used: None Estimated blood loss: Minimal Specimens:5 X 25 gauge FNA. The left neck was prepped and draped in the usual sterile fashion. 1% lidocaine was infiltrated into the subcutaneous tissues for local anesthesia. Real time ultrasound scanning of the left thyroid demo nstrated multiple nodules, the largest of which measures 21 x 14 mm inferior posterior aspect of the gland. Under ultrasound guidance, using 25 gauge FNA needle, 5 specimens were obtained of this lesion and sent to pathology for evaluation. There were no complications. IMPRESSION: Successful ultrasound-guided left thyroid FNA procedure of dominant heterogenous 21 mm l eft thyroid nodule.
== END ==
LOC: FNA 08:00
PROVIDERS: ATTEND Otolaryngology Facial Plastic Surgery
PROC: 0GBG3ZX Excision of Left Thyroid Gland Lobe, Percutaneous Approach, Diagnostic (ICD-10-PCS; principal; 2022-05-02)
DX: E04.1 Nontoxic single thyroid nodule (principal)
CPT/HCPCS: 88162; 88305

== ENCOUNTER 2024-03-20 14:03 | Emergency (ER) | payer OTHER ==
--- OUTSIDE RECORDS SUMMARY | 2024-03-20 14:05 | XMS REPORT | Clinical Summary ---
Author Name Unknown Organization [facility] [place] Address [address] [place] [address] Care Team Providers Care Lodging Manager Name Role Phone Ousmane Steinberg MD Unavailable [phone] Sammie Matthews MD Primary Care Provider [phone] Allergies Active Allergy Reactions Criticality Noted Date Comments Penicillins Rash High 06/28/2015 Pt reports having a rash in her mouth as a child Medications Medication Sig Dispensed Refills Start Date End Date Status aspirin 81 mg chewable tablet Chew 81 mg daily. Active CHONDROITIN SULFATE A (CHONDROITIN SULFATE ORAL) Take 1,200 mg by mouth twice daily. Active cloNIDine HCl (CATAPRES) 0.1 mg tablet Take 1 mg/mL by mouth twice daily. Active DOCOSAHEXANOIC ACID/EPA (FISH OIL ORAL) Take 1,200 mg by mouth daily. Active GLUCOSAMINE SULFATE (GLUCOSAMINE ORAL) Take 1,500 mg by mouth twice daily. Active losartan-hydrochloroth iazide (HYZAAR) 100-25 mg per tablet Take 1 tablet by mouth daily. Active POLYETHYLENE GLYCOL 3350 (MIRALAX ORAL)Indications:const ipation Take 1 packet by mouth daily Indications: Constipation. Active nortriptyline (PAMELOR) 50 mg capsule Take 50 mg by mouth daily. Active omeprazole (PriLOSEC) 40 MG capsule Take 40 mg by mouth daily. Active perphenazine (Apo-Perphenazine) 4 mg tablet Take 4 mg by mouth 3 (three) times a day. Active spironolactone (ALDACTONE) 50 mg tablet Take 50 mg/mL by mouth daily. Active cholecalciferol, vitamin D3, (VITAMIN D3) 2,000 units tab tablet Take 2,000 Units by mouth daily. Per clinic station, Vit D3 2000 million unit Active MULTIVIT-MIN/FA/CALCIU M/VIT K1 (ONE-A-DAY WOMEN'S 50+ ORAL) Take 1 tablet by mouth daily. Active zolpidem (AMBIEN) 10 mg tablet Take 10 mg by mouth daily. Active metoprolol succinate (TOPROL XL) 100 mg 24 hr tablet Take 1 tablet by mouth daily. 1 07/11/2015 Active verapamil (VERELAN) 300 MG CPCT Take 1 capsule by mouth daily. 1 07/11/2015 Active valsartan (DIOVAN) 80 mg tablet 80 mg. 2 12/10/2016 Active Active Problems Problem Noted Date Diagnosed Date Essential hypertension 07/30/2016 Endometrial carcinoma 10/05/2014 Cancer Staging:Clinical stage from 01/13/2013:Stage IA(Primary) - Signed by Sammie Matthews MD on 12/27/2015 Surgical History Surgery Date Site/Laterality Comments ENTEROLYSIS LAPAROSCOPIC HYSTERECTOMY LAPAROSCOPIC SALPINGO OOPHORECTOMY Bilate ral COLPOPEXY BY ABDOMINAL APPROACH TUBAL LIGATION Bilateral Medical History Medical History Date Comments Hypertension Generalized headache Sleep apnea Gastric ulcer Depression Anxiety Schizophrenia greater than 20 years. Family History Medical History Relation Name Comments Cancer Sister Type,unkown Relation Name Status Comments Sister Type,unkown Social History Tobacco Use Types Packs/Day Years Used Date Smoking Tobacco: Never Alcohol Use Standard Drinks/Week Comments No 0 (1 standard drink = 0.6 oz pur e alcohol) Sex and Gender Information Value Date Recorded Sex Assigned at Not on file Gender Identity Not on file Sexual Orientation Not on file Obstetrics History Para Term AB IAB SAB Ectopic Multiple Livin g Live Births 2 2 Date Outcome GA Total Labor Labor/2nd/3rd Weight Sex Type Anes PTL Heidi A1 A5 Name Clin Para Para Plan of Treatment Health Maintenance Due Date Last Done Comments Pneumococcal Vaccine: 65+ Years (1 of 1 - PCV) 013 COVID-19 Vaccine ( - 2023- season) 2024 Influenza Vaccine (#1) 2024 Care Teams Lodging Manager Relationship Specialty Start Date End Date Ousmane Steinberg MD [address] [facility] [address] [place] [address] [email or web address] PCP - External Referring 11/19/15 Sammie Matthews MD [address] [facility] [address] [place] [address] [email or web address] PCP - General Gynecologic Medical Oncology 12/27/15
[2024-03-20] MEDS ORDERED: TRANEXAMIC ACID 1,000 MG/10 ML VIAL IV ONE ×2 (14:33→14:47)
[2024-03-20] MEDS ORDERED: NA CHLORIDE 0.9% 50 ML ONE (14:47)
[2024-03-20 14:54] LABS: Absolute Eosinophils 0.1 K/uL (0-0.5); Absolute Lymphocytes (CBC) 1.5 K/uL (0.7-4.9); Absolute Monocytes 0.8 K/uL (0.1-1.3); Absolute Neutrophil 4.6 K/uL (1.8-8.0); Basophils % 0.3 % (0-1.3); Eosinophils % 0.9 % (0-4.4); Hematocrit 36.8 % (36.0-45.0); Hemoglobin 12.2 g/dL (12.0-15.0); Lymphocytes % 21.7 % (15.3-44.8); MCH 29.4 pg (27.0-35.0); MCHC 33.1 g/dL (32.0-36.0); MCV 88.9 fL (80-100); MPV 6.9 fL (7.6-11.3); Monocytes % 10.9 % (3.3-12.3); Neutrophils % 66.2 % (41.7-73.7); Platelets 380 thou/uL (152-406); RBC Red Blood Cell Count 4.14 M/uL (3.86-4.86); Red Cell Distribution Width 13.5 % (12.1-15.2)
[2024-03-20 14:59] LABS: PT Prothrombin Time 11.7 SECONDS (9.4-12.5); Protime INR 1.05
[2024-03-20 15:29] LABS: Anion Gap 11.7 mEq/L (5.0-15.0); Potassium 4.7 mEq/L (3.5-5.1)
--- NOTE | 2024-03-20 16:30 | ER ---
Nurse's Notes [facility] Name: Krissy Blanco Age: 74 yrs Sex: Female : 1950 Arrival Date: 03/20/2024 Time: 14:03 Bed 15 Private MD: Diagnosis: Epistaxis Presentation: 03/20 14:00 Chief complaint: EMS states: NOSE BLEED PICKED UP AT [facility]. BLEEDING X 30 MIN. db STATES WENT TO RESTROOM BLEW NOSE AND STARTED BLEEDING. PT STATES ALSO HAD NOSE BLEED YESTERDAY AT APPROXIMATELY 1600 AND BLEEDING STOPPED. DENIES RECENT TRAUMA. STATES TOOK ASPIRIN 81 MG TODAY DAILY MEDICATION. Coronavirus screen: Client denies travel out of the [place] in the last 14 days. At this time, the client does not indicate any symptoms associated with coronavirus-19. Ebola Screen: Patient negative for fever greater than or equal to 101.5 degrees Fahrenheit, and additional compatible Ebola Virus Disease symptoms Patient denies exposure to infectious person. Patient denies travel to an Ebola-affected area in the 21 days before illness onset. No symptoms or risks identified at this time. Initial Sepsis Screen: Does the patient meet any 2 criteria? No. Patient's initial sepsis screen is negative. Does the patient have a suspected source of infection? No. Patient's initial sepsis screen is negative. Risk Assessment: Do you want to hurt yourself or someone else? Patient reports no desire to harm self or others. Onset of symptoms was March 20, 2024. Onset of symptoms was March 20, 2024 at 13:30. 14:00 Method Of Arrival: EMS: [facility] db 14:00 Acuity: BETTY 3 db Triage Assessment: 14:12 General: Appears in no apparent distress. comfortable, Behavior is calm, cooperative, db appropriate for age. Pain: Denies pain. EENT: Nares with bleeding noted CONTROLLED BLEEDING WITH PRESSURE. Neuro: Level of Consciousness is awake, alert, obeys commands, Oriented to person, place, time, situation. Respiratory: Airway is patent Respiratory effort is even, unlabored, Respiratory pattern is regular, symmetrical. Historical: - Allergies: 14:12 PENICILLINS; db - PMHx: 14:12 Diabetes - NIDDM; Hypertension; Kidney disease; Hypercholesterolemia; db - Immunization history:: Adult Immunizations unknown. - Infectious Disease History:: Denies. - Social history:: Smoking status: Patient denies any tobacco usage or history of. Screenin:25 [facility] ED Fall Risk Assessment (Adult) History of falling in the last 3 months, db including since admission No falls in past 3 months (0 pts) Confusion or Disorientation No (0 pts) Intoxicated or Sedated No (0 pts) Impaired Gait No (0 pts) Mobility Assist Device Used No (0 pt) Altered Elimination No (0 pt) Score/Fall Risk Level 0 - 2 = Low Risk Oriented to surroundings, Maintained a safe environment. Abuse screen: Denies threats or abuse. Denies injuries from another. Nutritional screening: No deficits noted. Tuberculosis screening: No symptoms or risk factors identified. Assessment: 14:38 Reassessment: FAXED MEDICATION ORDER FOR TRANEXAMIC ACID AND CLARIFIED ADMINISTRATION db AND MIXING. 14:56 Reassessment: Patient appears in no apparent distress at this time. Patient and/or db family updated on plan of care and expected duration. Pain level reassessed. Patient is alert, oriented x 3, equal unlabored respirations, skin warm/dry/pink. General: Appears in no apparent distress. comfortable, Behavior is calm, cooperative. 15:25 Reassessment: Patient appears in no apparent distress at this time. Patient and/or db family updated on plan of care and expected duration. Pain level reassessed. Patient is alert, oriented x 3, equal unlabored respirations, skin warm/dry/pink. 15:25 Neuro: Level of Consciousness is awake, alert, obeys commands, Oriented to person, db place, time, situation. 16:37 Reassessment: Patient appears in no apparent distress at this time. Patient and/or db family updated on plan of care and expected duration. Pain level reassessed. Patient is alert, oriented x 3, equal unlabored respirations, skin warm/dry/pink. Patient states symptoms have improved. 16:49 Reassessment: Patient appears in no apparent distress at this time. Patient states db feeling better. Patient states symptoms have improved. Vital Signs: 14:00 BP 160 / 81; Pulse 87; Resp 16; Temp 98.9(O); Pulse Ox 99% on R/A; Weight 93.89 kg; db Height 5 ft. 2 in. ; Pain 0/10; 15:05 BP 130 / 103; Pulse 67; Resp 18; Pulse Ox 99% on R/A; db 16:00 BP 155 / 92; Pulse 79; Resp 18; Pulse Ox 100% on R/A; db 14:00 Body Mass Index 37.86 (93.89 kg, 157.48 cm) db 14:00 Pain Scale: Adult db ED Course: 14:10 Patient arrived in ED. db 14:12 Triage completed. db 14:12 Arm band placed on Patient placed in an exam room. db 14:16 Ravi Louis MD is Attending Physician. bo1 14:28 Samantha Hwang RN is Primary Nurse. db 14:44 Initial lab(s) drawn, by me, sent to lab. Inserted saline lock: 20 gauge in right db antecubital area, using aseptic technique. 15:25 Patient has correct armband on for positive identification. Call light in reach. Side db rails up X 1. Pulse ox on. NIBP on. Pillow given. 16:49 Provided Education on: DISCHARGE. db 16:49 No provider procedures requiring assistance completed. IV discontinued, intact, db bleeding controlled, No redness/swelling at site. Administered Medications: 14:50 Drug: tranexamic acid 1000 mg IV at bolus once; administer at a rate not to exceed 100 db mg per min Route: IV; Rate: bolus; Site: right antecubital; 15:30 Follow up: Response: No adverse reaction; IV Status: Completed infusion; IV Intake: 50mldb Medication: 16:49 VIS not applicable for this client. db Intake: 15:30 IV: 50ml; Total: 50ml. db Outcome: 16:29 Discharge ordered by . bo1 16:49 Discharged to home via wheelchair, WAITING FOR FAMILY IN WAITING ROOM db 16:49 Condition: stable 16:49 Discharge instructions given to patient, Instructed on discharge instructions, follow up and referral plans. Prescriptions given X 1, 16:50 Patient left the ED. db Signatures: Samantha Hwang, SHAYAN RN db Ravi Louis MD MD bo1
--- NOTE | 2024-03-20 16:30 | EDPHYS ---
Physician Documentation [facility] Name: Krissy Blanco Age: 74 yrs Sex: Female : 1950 Arrival Date: 03/20/2024 Time: 14:03 Bed 15 Private MD: ED Physician Ravi Louis HPI: 03/20 14:22 This 74 yrs old Female presents to ER via EMS with complaints of Nose Bleed. bo1 14:22 The patient presents with a nose bleed. Onset: The symptoms/episode began/occurred bo1 suddenly, yesterday, After bending over prior to a concert \T\ 4pm. Severity of symptoms: At their worst the symptoms were moderate Pt had plugged the nose with tissue and has applied pressure. Pt had bent over in the toilet today and restarted the bleeding. Arrives via ambulance to the ER. Historical: - Allergies: 14:12 PENICILLINS; db - PMHx: 14:12 Diabetes - NIDDM; Hypertension; Kidney disease; Hypercholesterolemia; db - Immunization history:: Adult Immunizations unknown. - Infectious Disease History:: Denies. - Social history:: Smoking status: Patient denies any tobacco usage or history of. ROS: 16:24 Constitutional: Negative for fever, chills, and weight loss bo1 16:24 ENT: Positive for nose bleed, 16:24 Neck: Negative for pain with movement, pain at rest, 16:24 Cardiovascular: Negative for chest pain, 16:24 Respiratory: Negative for shortness of breath, 16:24 Abdomen/GI: Negative for abdominal pain, 16:24 Skin: Negative for ecchymosis, Bruising, 16:24 All other systems are negative, Exam: 16:25 Constitutional: This is a well developed, well nourished patient who is awake, alert, bo1 and in no acute distress. 16:25 Constitutional: The patient appears alert, awake, comfortable, 16:25 Eyes: Exam is negative for icterus, 16:25 ENT: External ear(s): are unremarkable, TM's: no acute changes, Nose: bleeding, is seen from the left nare, and is moderate, No trauma. 16:25 Neck: External neck: no acute changes, 16:25 Abdomen/GI: Inspection: abdomen appears normal, Palpation: abdomen is soft and non-tender, 16:25 Skin: no rash present. 16:25 Neuro: Exam negative for acute changes, Vital Signs: 14:00 BP 160 / 81; Pulse 87; Resp 16; Temp 98.9(O); Pulse Ox 99% on R/A; Weight 93.89 kg; db Height 5 ft. 2 in. ; Pain 0/10; 15:05 BP 130 / 103; Pulse 67; Resp 18; Pulse Ox 99% on R/A; db 16:00 BP 155 / 92; Pulse 79; Resp 18; Pulse Ox 100% on R/A; db 14:00 Body Mass Index 37.86 (93.89 kg, 157.48 cm) db 14:00 Pain Scale: Adult db MDM: 14:16 Medical Screening Exam initiated bo1 16: Differential diagnosis: spontaneous epistaxis. Data reviewed: vital signs, lab test bo1 result(s), CBC, Coags. ED course: Pt has responded to the TXA well and will be discharged. At this point no nasal tampon or plug needed. 03/20 14:24 Order name: Basic Metabolic Panel; Complete Time: 15:38 bo1 03/20 14:24 Order name: CBC with Diff; Complete Time: 15:28 bo1 03/20 14:24 Order name: PT-INR; Complete Time: 15:28 bo1 03/20 14:24 Order name: IV Saline Lock; Complete Time: 14:56 bo1 03/20 14:24 Order name: Labs collected and sent; Complete Time: 14:56 bo1 Administered Medications: 14:50 Drug: tranexamic acid 1000 mg IV at bolus once; administer at a rate not to exceed 100 db mg per min Route: IV; Rate: bolus; Site: right antecubital; 15:30 Follow up: Response: No adverse reaction; IV Status: Completed infusion; IV Intake: 50mldb Disposition Summary: 03/20/24 16:29 Discharge Ordered Notes: Location: Home bo1 Problem: new bo1 Symptoms: have improved bo1 Condition: Stable bo1 Diagnosis - Epistaxis bo1 Followup: bo1 - With: Private Physician - When: Upon discharge from the Emergency Department - Reason: Recheck today's complaints, Continuance of care Discharge Instructions: - Discharge Summary Sheet bo1 - Nosebleed, Adult, [id number] bo1 Forms: - Medication Reconciliation Form bo1 - Antibiotic Education bo1 - Prescription Opioid Use bo1 - Patient Portal Instructions bo1 - Leadership Thank You Letter bo1 Prescriptions: - tranexamic acid 650 mg Oral tablet - take 1 tablet ORAL route 2 times per day; 10 tablet; Refills: 0, Product bo1 Selection Permitted Signatures: Dispatcher [employer] Samantha Rosas RN RN db Oei, Benjamin, MD MD bo1
[2024-03-20 22:16] VITALS: BP 155/92; O2SAT 100
== END 2024-03-20 16:50 | disposition home or self-care (01) ==
LOC: ER 14:03
DX: R04.0 Epistaxis (principal); I10 Essential (primary) hypertension; E11.9 Type 2 diabetes mellitus without complications; E78.00 Pure hypercholesterolemia, unspecified; Z88.0 Allergy status to penicillin
CPT/HCPCS: 36415; 80048; 85025; 85610; 96365; 99284

== ENCOUNTER 2024-03-28 03:50 | Emergency (ER) | payer OTHER ==
--- OUTSIDE RECORDS SUMMARY | 2024-03-28 03:53 | XMS REPORT | Clinical Summary ---
Author Name Unknown Organization [facility] [place] Address [address] [place] [address] Care Team Providers Care Drill Press Operator Name Role Phone Ousmane Steinberg MD Unavailable [phone] Sammie Matthews MD Primary Care Provider [phone] Allergies Active Allergy Reactions Criticality Noted Date [...] 2024 Influenza Vaccine (#1) 2024 Care Teams Drill Press Operator Relationship Specialty Start Date End Date Ousmane Steinberg MD [address] [facility] [address] [place] [address] [email or web address] PCP - External Referring 11/19/15 Sammie Matthews MD [address] [facility] [address] [place] [address] [email or web address] PCP - General Gynecologic Medical Oncology 12/27/15
[2024-03-28] MEDS ORDERED: ONDANSETRON 4 MG/2 ML VIAL ONE (04:02)
[2024-03-28] MEDS ORDERED: HYDROCODONE/APAP 5/325 MG TAB ONE (04:03)
[2024-03-28] MEDS ORDERED: TRANEXAMIC ACID 1,000 MG/10 ML VIAL IV ONE (04:03)
[2024-03-28] MEDS ORDERED: NA CHLORIDE 0.9% 100 ML ONE (04:03)
[2024-03-28 05:02] LABS: Absolute Basophils 0.1 K/uL (0-0.5); Absolute Eosinophils 0.1 K/uL (0-0.5); Absolute Lymphocytes (CBC) 1.6 K/uL (0.7-4.9); Absolute Monocytes 0.9 K/uL (0.1-1.3); Absolute Neutrophil 5.5 K/uL (1.8-8.0); Basophils % 0.6 % (0-1.3); Eosinophils % 1.2 % (0-4.4); Hematocrit 33.2 % (36.0-45.0); Hemoglobin 11.6 g/dL (12.0-15.0); MCH 30.9 pg (27.0-35.0); MCHC 34.9 g/dL (32.0-36.0); MCV 88.7 fL (80-100); MPV 6.6 fL (7.6-11.3); Monocytes % 11.1 % (3.3-12.3); Neutrophils % 67.1 % (41.7-73.7); Platelets 360 thou/uL (152-406); RBC Red Blood Cell Count 3.75 M/uL (3.86-4.86); Red Cell Distribution Width 13.4 % (12.1-15.2)
[2024-03-28 05:22] LABS: Albumin/Globulin Ratio 0.9 (1.1-1.8); Anion Gap 8.1 mEq/L (5.0-15.0); Bilirubin Total 0.2 mg/dL (0.2-1.0); Globulin 3.5 g/dL (2.3-3.5); Potassium 4.1 mEq/L (3.5-5.1); Protein, Total 6.5 g/dL (6.4-8.2)
--- NOTE | 2024-03-28 06:32 | EDPHYS ---
Physician Documentation [facility] Name: Krissy Blanco Age: 74 yrs Sex: Female : 1950 Arrival Date: 03/28/2024 Time: 03:50 Bed 2 Private MD: ED Physician Jone Wade HPI: 03/28 03:54 This 74 yrs old Female presents to ER via Unassigned with complaints of Nose sp4 Bleed. 03/29 02:07 Patient presents with EMS for acute left sided epistaxis, Reports taking PO ASA daily . sp4 Historical: - Allergies: 03/28 04:05 PENICILLINS; ha1 - Home Meds: 04:05 clonidine HCl 0.1 mg Oral tab 1 tab 2 times per day [Active]; losartan 100 mg Oral tab ha1 1 tab once daily [Active]; nortriptyline 50 mg Oral cap once daily [Active]; perphenazine 4 mg Oral tab 1 tab 3 times per day [Active]; spironolactone 50 mg Oral tab 1 tab once daily [Active]; zolpidem 10 mg Oral tab 1 tab once daily [Active]; pravastatin oral [Active]; metformin 500 mg Oral tab 1 tab 2 times per day [Active]; Omeprazole Oral [Active]; metoprolol succinate 100 mg Oral Tb24 1 tab once daily [Active]; glucosamine-chondroitin Oral twice a day [Active]; Pepcid 20 mg oral tablet 1 tab [Active]; - PMHx: 04:05 Diabetes - NIDDM; Diabetes - NIDDM; Hypercholesterolemia; Hypertension; kidney disease; ha1 - PSHx: 04:05 HYSTORECTOMY (Unknown); ha1 - Immunization history:: Adult Immunizations up to date. - Infectious Disease History:: Denies. - Social history:: Smoking status: unknown. - Family history:: not pertinent. ROS: 03/29 02:07 Constitutional: Negative for fever, chills, and weight loss, positive nose bleed sp4 All other systems are negative, Exam: 02:07 Constitutional: This is a well developed, well nourished patient who is awake, alert, sp4 and in no acute distress. Head/Face: Normocephalic, atraumatic. Eyes: Pupils equal round and reactive to light, extra-ocular motions intact. Lids and lashes normal. Conjunctiva and sclera are not injected. Cornea within normal limits. Periorbital areas with no swelling, redness, or edema. ENT: Tympanic membranes are normal and external auditory canals are clear. Oropharynx with no redness, swelling, or masses, exudates, or evidence of obstruction, uvula midline. Mucous membranes moist. positive for mild left sided epistaxis Neck: Trachea midline, no thyromegaly or masses palpated, and no cervical lymphadenopathy. Supple, full range of motion without nuchal rigidity, or vertebral point tenderness. Chest/axilla: Normal chest wall appearance and motion. Nontender with no deformity. No lesions are appreciated. Cardiovascular: Regular rate and rhythm with a normal S1 and S2. No gallops, murmurs, or rubs. Normal PMI, no JVD. No pulse deficits. Respiratory: Lungs have equal breath sounds bilaterally, clear to auscultation and percussion. No rales, rhonchi or wheezes noted. No increased work of breathing, no retractions or nasal flaring. Abdomen/GI: Soft, with normal bowel sounds. No distension or tympany. No guarding or rebound. No evidence of tenderness throughout. Back: No spinal tenderness. No costovertebral tenderness. Skin: Warm, dry with normal turgor. Normal color with no rashes, no lesions, and no evidence of cellulitis. MS/ Extremity: Pulses equal, no cyanosis. Neurovascular intact. Full, normal range of motion. Neuro: Awake and alert, GCS 15, oriented to person, place, time, and situation. Cranial nerves II-XII grossly intact. Motor strength 5/5 in all extremities. Sensory grossly intact. Psych: Awake, alert, with orientation to person, place and time. Behavior, mood, and affect are within normal limits Vital Signs: 03/28 03:50 BP 151 / 77; Pulse 84; Resp 20; Temp 98.4; Pulse Ox 100% on R/A; Pain 0/10; mt4 03:54 BP 134 / 85; Pulse 87; Resp 16; Temp 97.6; Pulse Ox 95% on R/A; Weight 99.79 kg; Height al5 5 ft. 5 in. ; 04:00 BP 120 / 76; Pulse 79; Resp 18; Pulse Ox 100% on R/A; al5 04:15 BP 134 / 75; Pulse 78; Resp 16; Pulse Ox 99% on R/A; al5 04:30 BP 127 / 73; Pulse 77; Resp 16; Pulse Ox 99% on R/A; al5 04:45 BP 123 / 72; Pulse 73; mt4 05:00 BP 127 / 78; Pulse 78; Resp 18; Pulse Ox 99% on R/A; al5 05:30 BP 124 / 68; Pulse 72; Resp 16; Pulse Ox 100% on R/A; al5 06:00 BP 116 / 64; Pulse 71; Resp 16; Pulse Ox 100% on R/A; al5 06:30 BP 124 / 66; Pulse 74; Resp 17; Pulse Ox 100% on R/A; al5 03:54 Body Mass Index 36.61 (99.79 kg, 165.1 cm) al5 03:50 Pain Scale: Adult mt4 [place] Coma Score: 03:50 Eye Response: spontaneous(4). Motor Response: obeys commands(6). Verbal Response: mt4 oriented(5). Total: 15. 03/29 02:07 Eye Response: spontaneous(4). Motor Response: obeys commands(6). Verbal Response: sp4 oriented(5). Total: 15. MDM: 03/28 03:56 Medical Screening Exam initiated sp4 03/29 02:10 Differential diagnosis: nasal fracture, trauma, sinusitis. Data reviewed: vital signs, sp4 nurses notes. Consideration of Admission/Observation Escalation of care including admission/observation considered. ED course: Epistaxis has clotted off after compression with nasal clamp. Stable for discharge home with TXA PO prescription . 03/28 03:56 Order name: CBC with Diff; Complete Time: 06:22 sp4 03/28 03:56 Order name: CMP; Complete Time: 06:22 sp4 03/28 03:56 Order name: Saline Lock; Complete Time: 04:39 sp4 03/28 03:56 Order name: Labs collected and sent; Complete Time: 04:51 sp4 03/28 04:16 Order name: Misc. Order: recollect labs; Complete Time: 04:50 kmf Administered Medications: 03/28 04:15 Drug: tranexamic acid 1000 mg IV at calculated rate once; administer at a rate not to al5 exceed 100 mg per min Route: IV; Rate: calculated rate; Site: right antecubital; 05:00 Follow up: Response: No adverse reaction; IV Status: Completed infusion; IV Intake: mt4 100ml 04:20 Drug: Ondansetron IVP 4 mg IVP once; over 2 minutes Route: IVP; Site: right antecubital;mt4 05:00 Follow up: Response: No adverse reaction mt4 04:21 Drug: HYDROcodone-acetaminophen PO 5 mg-325 mg 2 tabs PO once Route: PO; mt4 05:00 Follow up: Response: No adverse reaction mt4 Disposition Summary: 03/28/24 06:31 Discharge Ordered Notes: Location: Home sp4 Problem: new sp4 Symptoms: have improved sp4 Condition: Stable sp4 Diagnosis - Epistaxis sp4 - Acute bilateral epistaxis, sp4 Followup: sp4 - With: Private Physician - When: 7 - 10 days - Reason: Recheck today's complaints Followup: sp4 - With: Asuncion iCsneros MD - When: 7 - 10 days - Reason: Recheck today's complaints Discharge Instructions: - Discharge Summary Sheet sp4 - Nosebleed, Adult, [id number] sp4 Forms: - Patient Portal Instructions sp4 Prescriptions: - tranexamic acid 650 mg Oral tablet - take 1 tablet ORAL route every 12 hours; 60 tablet; Refills: 0, Product sp4 Selection Permitted Signatures: Dispatcher [employer] EDBrittany Quinones RN RN ha1 Jone Wade MD MD sp4 Carolina Dooley [facility] Eugenio Payton RN RN mt4 Kristal Sosa RN RN al5 Corrections: (The following items were deleted from the chart) 03:57 03:57 CBC+H.LAB.BRZ ordered. EDMS EDMS 03:57 03:57 COMPREHENSIVE METABOLIC PANEL+C.LAB.BRZ ordered. EDMS EDMS
--- NOTE | 2024-03-28 06:32 | ER ---
Nurse's Notes [facility] Name: Krissy Blanco Age: 74 yrs Sex: Female : 1950 Arrival Date: 03/28/2024 Time: 03:50 Bed 2 Private MD: Diagnosis: Epistaxis;Acute bilateral epistaxis, Presentation: 03/28 03:54 Chief complaint: EMS states: SUDDEN ONSET OF NOSE BLEED. OUT OF MEDICATION TO PREVENT ha1 NOSE BLEED. 03:54 Coronavirus screen: Vaccine status: At this time, the client does not indicate any ha1 symptoms associated with coronavirus-19. Ebola Screen: No symptoms or risks identified at this time. Initial Sepsis Screen: Does the patient meet any 2 criteria? No. Patient's initial sepsis screen is negative. Does the patient have a suspected source of infection? No. Patient's initial sepsis screen is negative. Risk Assessment: Do you want to hurt yourself or someone else? Patient reports no desire to harm self or others. Onset of symptoms was March 28, 2024. 03:54 Method Of Arrival: EMS: [facility] ha1 03:54 Acuity: BETTY 3 ha1 Triage Assessment: 03:54 General: Appears uncomfortable, Behavior is cooperative. Pain: Denies pain. Neuro: ha1 Level of Consciousness is awake, alert, obeys commands, Oriented to person, place, time, situation. Cardiovascular: Capillary refill < 3 seconds Patient's skin is warm and dry. NOSE BLEEDING. NOSE CLAMP APPLIED . Cardiovascular: Reports HISTORY OF NOSE BLEED. Respiratory: Airway is patent Respiratory effort is even, unlabored, Respiratory pattern is regular, symmetrical. GI: Abdomen is round non-distended, obese. : No signs and/or symptoms were reported regarding the genitourinary system. Derm: Skin is pink, warm \T\ dry. Musculoskeletal: Circulation, motion, and sensation intact. Historical: - Allergies: 04:05 PENICILLINS; ha1 - Home Meds: 04:05 clonidine HCl 0.1 mg Oral tab 1 tab 2 times per day [Active]; losartan 100 mg Oral tab ha1 1 tab once daily [Active]; nortriptyline 50 mg Oral cap once daily [Active]; perphenazine 4 mg Oral tab 1 tab 3 times per day [Active]; spironolactone 50 mg Oral tab 1 tab once daily [Active]; zolpidem 10 mg Oral tab 1 tab once daily [Active]; pravastatin oral [Active]; metformin 500 mg Oral tab 1 tab 2 times per day [Active]; Omeprazole Oral [Active]; metoprolol succinate 100 mg Oral Tb24 1 tab once daily [Active]; glucosamine-chondroitin Oral twice a day [Active]; Pepcid 20 mg oral tablet 1 tab [Active]; - PMHx: 04:05 Diabetes - NIDDM; Diabetes - NIDDM; Hypercholesterolemia; Hypertension; kidney disease; ha1 - PSHx: 04:05 HYSTORECTOMY (Unknown); ha1 - Immunization history:: Adult Immunizations up to date. - Infectious Disease History:: Denies. - Social history:: Smoking status: unknown. - Family history:: not pertinent. Screenin:50 Exposure risk/Travel Screening: None identified. mt4 04:16 [facility] ED Fall Risk Assessment (Adult) History of falling in the last 3 months, ha1 including since admission Yes- single mechanical fall (1 pt) Confusion or Disorientation No (0 pts) Intoxicated or Sedated No (0 pts) Impaired Gait No (0 pts) Mobility Assist Device Used No (0 pt) Altered Elimination No (0 pt) Score/Fall Risk Level 3 or more points = High Risk Oriented to surroundings, Maintained a safe environment, Educated pt \T\ family on fall prevention, incl call for assistance when getting out of bed, Hourly rounding (assess needs \T\ fall precautionary measures) done. Abuse screen: Denies threats or abuse. Denies injuries from another. Nutritional screening: No deficits noted. Tuberculosis screening: No symptoms or risk factors identified. Assessment: 03:50 General: Appears in no apparent distress. obese, Behavior is cooperative, appropriate mt4 for age. Pain: Complains of pain in right arm. Pain: Complains of pain in patient states she has chronic pain to shoulder and back, denies pain to nasal area. Neuro: Level of Consciousness is awake, alert, obeys commands, Oriented to person, place, time, situation, Appropriate for age [employer] are Moves all extremities. Speech is normal, Facial symmetry appears normal. Cardiovascular: Capillary refill < 3 seconds. Respiratory: Airway is patent. GI: Abdomen is round obese, Abd is non tender. : Denies burning with urination. Musculoskeletal: Capillary refill < 3 seconds, Range of motion: intact in all extremities. 03:54 Reassessment: SEE TRIAGE ASSESSMENT. ha1 05:24 Reassessment: Patient appears in no apparent distress at this time. Patient and/or al5 family updated on plan of care and expected duration. Pain level reassessed. Patient is alert, oriented x 3, equal unlabored respirations, skin warm/dry/pink. no bleeding noted. 06:54 Reassessment: Patient appears in no apparent distress at this time. No changes from al5 previously documented assessment. Patient and/or family updated on plan of care and expected duration. Pain level reassessed. Patient is alert, oriented x 3, equal unlabored respirations, skin warm/dry/pink. Patient states feeling better. Patient states symptoms have improved. Vital Signs: 03:50 BP 151 / 77; Pulse 84; Resp 20; Temp 98.4; Pulse Ox 100% on R/A; Pain 0/10; mt4 03:54 BP 134 / 85; Pulse 87; Resp 16; Temp 97.6; Pulse Ox 95% on R/A; Weight 99.79 kg; Height al5 5 ft. 5 in. ; 04:00 BP 120 / 76; Pulse 79; Resp 18; Pulse Ox 100% on R/A; al5 04:15 BP 134 / 75; Pulse 78; Resp 16; Pulse Ox 99% on R/A; al5 04:30 BP 127 / 73; Pulse 77; Resp 16; Pulse Ox 99% on R/A; al5 04:45 BP 123 / 72; Pulse 73; mt4 05:00 BP 127 / 78; Pulse 78; Resp 18; Pulse Ox 99% on R/A; al5 05:30 BP 124 / 68; Pulse 72; Resp 16; Pulse Ox 100% on R/A; al5 06:00 BP 116 / 64; Pulse 71; Resp 16; Pulse Ox 100% on R/A; al5 06:30 BP 124 / 66; Pulse 74; Resp 17; Pulse Ox 100% on R/A; al5 03:54 Body Mass Index 36.61 (99.79 kg, 165.1 cm) al5 03:50 Pain Scale: Adult mt4 [place] Coma Score: 03:50 Eye Response: spontaneous(4). Motor Response: obeys commands(6). Verbal Response: mt4 oriented(5). Total: 15. 03/29 02:07 Eye Response: spontaneous(4). Motor Response: obeys commands(6). Verbal Response: sp4 oriented(5). Total: 15. ED Course: 03/28 03:50 No apparent distress. Resting quietly. Awaiting lab results. mt4 03:50 Provided Education on: meds and labs . Client placed on continuous cardiac and pulse mt4 oximetry monitoring. NIBP monitoring applied. handle bar assembler on. Pulse ox on. Door closed. Lights dimmed. Warm blanket given. Pillow given. Verbal reassurance given. Repositioned patient. 03:50 No provider procedures requiring assistance completed. Inserted saline lock: 20 gauge mt4 in left antecubital area, using aseptic technique. Inserted saline lock: Blood collected. Flushed with 10 mL NS. Patient maintains SpO2 saturation greater than 95% on room air. Patient maintains SpO2 saturation greater than 95% on room air. 03:54 Patient arrived in ED. al5 03:54 Jone Wade MD is Attending Physician. sp4 03:54 Patient has correct armband on for positive identification. Placed in gown. Bed in low ha1 position. Call light in reach. Side rails up X2. 03:54 Arm band placed on right wrist. Patient placed in the treatment room, on a stretcher. al5 04:00 Eugenio Payton, SHAYAN is Primary Nurse. mt4 04:05 Triage completed. ha1 06:31 Asuncion Cisneros MD is Referral Physician. sp4 06:55 IV discontinued, intact, bleeding controlled, No redness/swelling at site. Pressure al5 dressing applied. Administered Medications: 04:15 Drug: tranexamic acid 1000 mg IV at calculated rate once; administer at a rate not to al5 exceed 100 mg per min Route: IV; Rate: calculated rate; Site: right antecubital; 05:00 Follow up: Response: No adverse reaction; IV Status: Completed infusion; IV Intake: mt4 100ml 04:20 Drug: Ondansetron IVP 4 mg IVP once; over 2 minutes Route: IVP; Site: right antecubital;mt4 05:00 Follow up: Response: No adverse reaction mt4 04:21 Drug: HYDROcodone-acetaminophen PO 5 mg-325 mg 2 tabs PO once Route: PO; mt4 05:00 Follow up: Response: No adverse reaction mt4 Medication: 03:50 VIS not applicable for this client. mt4 Intake: 05:00 IV: 100ml; Total: 100ml. mt4 Outcome: 06:31 Discharge ordered by . sp4 06:55 Discharged to home ambulatory, with friend, al5 06:55 Condition: good :55 Discharge instructions given to patient, Instructed on discharge instructions, follow up and referral plans. medication usage, Demonstrated understanding of instructions, follow-up care, medications, Prescriptions given X 1, 06:55 Patient left the ED. al5 Signatures: Brittany Rodriguez RN RN ha1 Jone Wade MD MD sp4 Eugenio Payton RN RN mt4 Kristal Sosa RN RN al5 Corrections: (The following items were deleted from the chart) 06:54 05:00 BP 127 / ???; Pulse 78bpm; Resp 18bpm; Pulse Ox 99% RA; al5 al5
[2024-03-28 07:26] VITALS: TEMP 97.6
[2024-03-28 07:33] VITALS: O2SAT 100
[2024-03-28 07:35] VITALS: BP 124/66
== END 2024-03-28 06:55 | disposition home or self-care (01) ==
LOC: ER 03:50
DX: R04.0 Epistaxis (principal); E11.22 Type 2 diabetes mellitus with diabetic chronic kidney disease; N18.9 Chronic kidney disease, unspecified
CPT/HCPCS: 85025; 36415; 80053; J2405; 96365; 96375; 99285